=== PATIENT | male | born 1995 | race Native Hawaiian/Other Pacific Islander ===

== ENCOUNTER 2016-06-11 12:17 | Emergency (ER) | payer OTHER ==
[~2016-06-11] VITALS: Ht 165.1 cm; Wt 81.6 kg
[2016-06-11 13:25] VITALS: BP 123/71; TEMP 98.7
== END 2016-06-11 13:27 | disposition home or self-care (01) ==
LOC: ED 12:17
DX: J06.9 Acute upper respiratory infection, unspecified (principal)
CPT/HCPCS: 99282

== ENCOUNTER 2016-10-07 17:25 | Emergency (ER) | payer OTHER ==
[~2016-10-07] VITALS: Ht 165.1 cm; Wt 81.6 kg
[2016-10-07 17:43] VITALS: BP 131/75; TEMP 98
== END 2016-10-07 18:37 | disposition left against medical advice (07) ==
LOC: ED 17:25
DX: R07.89 Other chest pain (principal)
CPT/HCPCS: 99281

== ENCOUNTER 2016-11-12 01:31 | Emergency (ER) | payer OTHER ==
[~2016-11-12] VITALS: Ht 167.6 cm; Wt 81.6 kg
[2016-11-12 01:47] VITALS: TEMP 98.1
[2016-11-12 02:06] LABS: PLATELET COUNT 377 K/uL (142-355)
[2016-11-12 02:29] LABS: POTASSIUM 3.8 mmol/L (3.6-5.2); SODIUM 143 mmol/L (136-145)
[2016-11-12 03:23] VITALS: BP 142/86
== END 2016-11-12 03:54 | disposition short-term general hospital (02) ==
LOC: ED 01:31
DX: S93.04XA Dislocation of right ankle joint, initial encounter (principal); S82.51XA Displaced fracture of medial malleolus of right tibia, initial encounter for closed fracture; S82.831A Other fracture of upper and lower end of right fibula, initial encounter for closed fracture; V86.59XA Driver of other special all-terrain or other off-road motor vehicle injured in nontraffic accident, initial encounter; Y92.410 Unspecified street and highway as the place of occurrence of the external cause
CPT/HCPCS: 36415; 80053; 85027; 96374; 96375; 99285; J2175; J2270; J2405

== ENCOUNTER 2016-11-12 04:03 | Outpatient (CLI) | payer OTHER | END 2016-11-12 05:18 | disposition short-term general hospital (02) | LOC: AMB 04:03 | DX: S93.04XA Dislocation of right ankle joint, initial encounter (principal); S82.51XA Displaced fracture of medial malleolus of right tibia, initial encounter for closed fracture; S82.831A Other fracture of upper and lower end of right fibula, initial encounter for closed fracture; V86.59XA Driver of other special all-terrain or other off-road motor vehicle injured in nontraffic accident, initial encounter; Y92.410 Unspecified street and highway as the place of occurrence of the external cause | CPT/HCPCS: A0425; A0429 ==

== ENCOUNTER 2016-11-12 22:50 | Emergency (ER) | payer OTHER ==
[~2016-11-12] VITALS: Ht 167.6 cm; Wt 81.6 kg
[2016-11-12 22:49] VITALS: TEMP 98.1
[2016-11-13 00:08] VITALS: BP 128/89
== END 2016-11-13 00:08 | disposition home or self-care (01) ==
LOC: ED 22:50
DX: Z04.3 Encounter for examination and observation following other accident (principal)
CPT/HCPCS: 99283

== ENCOUNTER 2016-11-27 08:26 | Emergency (ER) | payer OTHER ==
[~2016-11-27] VITALS: Ht 170.2 cm; Wt 70.8 kg
[2016-11-27 08:45] VITALS: BP 153/92; TEMP 98.6
== END 2016-11-27 09:00 | disposition home or self-care (01) ==
LOC: ED 08:26
DX: M79.604 Pain in right leg (principal); Z98.890 Other specified postprocedural states
CPT/HCPCS: 99281

== ENCOUNTER 2017-10-16 08:08 | Emergency (ER) | payer OTHER ==
[~2017-10-16] VITALS: Ht 167.6 cm; Wt 72.6 kg
[2017-10-16 08:10] VITALS: BP 137/101; TEMP 98
[2017-10-16 09:01] LABS: PLATELET COUNT 326 K/uL (142-355)
[2017-10-16 09:16] LABS: POTASSIUM 3.4 mmol/L (3.6-5.2)
== END 2017-10-16 10:10 | disposition home or self-care (01) ==
LOC: ED 08:08
PROVIDERS: Emergency Medicine
DX: N45.1 Epididymitis (principal)
CPT/HCPCS: 36415; 80053; 81000; 85027; 99283; J0696

== ENCOUNTER 2018-04-28 02:08 | Emergency (ER) | payer OTHER ==
[~2018-04-28] VITALS: Ht 167.6 cm; Wt 76.2 kg
[2018-04-28 03:27] LABS: PLATELET COUNT 345 K/uL (142-355)
[2018-04-28 06:38] VITALS: BP 148/83; TEMP 97.1
== END 2018-04-28 06:41 | disposition home or self-care (01) ==
LOC: ED 02:08
PROVIDERS: Family Medicine
DX: I20.9 Angina pectoris, unspecified (principal); F19.10 Other psychoactive substance abuse, uncomplicated; R00.1 Bradycardia, unspecified
CPT/HCPCS: 36415; 80053; 80307; 81000; 82550; 84484; 85027; 93005; 99283

== ENCOUNTER 2021-01-09 08:52 | Emergency (ER) | payer OTHER ==
[~2021-01-09] VITALS: Ht 167.6 cm; Wt 99.8 kg
[2021-01-09 09:30] VITALS: TEMP 98.7
[2021-01-09 11:10] VITALS: BP 123/78
--- NOTE | 2021-01-11 09:00 | NUR ---
0901- PATIENT CALLED TO ASK ABOUT COVID TEST RESULTS. AFTER VERIFYING DATE OF , COVID RESULTS WERE GIVEN TO PATIENT. PATIENT REQUESTED COPY OF RECORDS SO THE CALL WAS THEN TRANSFERRED TO MEDICAL RECORDS. NO OTHER QUESTIONS OR CONCERNS VOICED AT THIS TIME.
== END 2021-01-09 11:10 | disposition home or self-care (01) ==
LOC: ED 08:52
DX: B34.9 Viral infection, unspecified (principal); Z20.822 Contact with and (suspected) exposure to COVID-19
CPT/HCPCS: 87635; 99283; U0003

== ENCOUNTER 2021-04-20 08:41 | Emergency (ER) | payer OTHER ==
[~2021-04-20] VITALS: Ht 167.6 cm; Wt 104.3 kg
[2021-04-20 08:50] VITALS: BP 134/80; TEMP 97.4
== END 2021-04-20 10:03 | disposition home or self-care (01) ==
LOC: ED 08:41
DX: R23.8 Other skin changes (principal); R06.2 Wheezing; F17.210 Nicotine dependence, cigarettes, uncomplicated
CPT/HCPCS: 94664; 96372; 99283; J0696

== ENCOUNTER 2021-05-09 20:02 | Emergency (ER) | payer OTHER ==
[~2021-05-09] VITALS: Ht 167.6 cm; Wt 104.3 kg
[2021-05-09 23:25] VITALS: BP 131/77; TEMP 98.5
== END 2021-05-09 23:26 | disposition home or self-care (01) ==
LOC: ED 20:02
DX: J40 Bronchitis, not specified as acute or chronic (principal); U07.1 COVID-19; F17.210 Nicotine dependence, cigarettes, uncomplicated
CPT/HCPCS: 99283

== ENCOUNTER 2021-11-26 01:32 | Emergency (ER) | payer OTHER ==
[~2021-11-26] VITALS: Ht 167.6 cm; Wt 104.3 kg
[2021-11-26 01:38] VITALS: TEMP 97.9
[2021-11-26 02:30] VITALS: BP 139/74
== END 2021-11-26 02:30 | disposition home or self-care (01) ==
LOC: ED 01:32
DX: H66.91 Otitis media, unspecified, right ear (principal); F17.210 Nicotine dependence, cigarettes, uncomplicated
CPT/HCPCS: 96372; 99283; J0696; J1885

== ENCOUNTER 2022-03-15 06:58 | Emergency (ER) | payer OTHER ==
[~2022-03-15] VITALS: Ht 167.6 cm; Wt 104.3 kg
[2022-03-15 07:05] VITALS: TEMP 99
[2022-03-15 08:05] VITALS: BP 146/78
== END 2022-03-15 08:09 | disposition home or self-care (01) ==
LOC: ED 06:58
DX: S90.31XA Contusion of right foot, initial encounter (principal); X50.1XXA Overexertion from prolonged static or awkward postures, initial encounter; Y92.89 Other specified places as the place of occurrence of the external cause
CPT/HCPCS: 96372; 99283; J1885

== ENCOUNTER 2022-05-29 18:27 | Emergency (ER) | payer OTHER ==
[~2022-05-29] VITALS: Ht 167.6 cm; Wt 104.3 kg
[2022-05-29 19:00] VITALS: TEMP 98.8
[2022-05-29 20:32] LABS: PLATELET COUNT 214 K/uL (142-355)
[2022-05-29 21:30] VITALS: BP 138/76
== END 2022-05-29 21:30 | disposition home or self-care (01) ==
LOC: ED 18:27
PROVIDERS: Emergency Medicine
DX: J10.1 Influenza due to other identified influenza virus with other respiratory manifestations (principal); J45.909 Unspecified asthma, uncomplicated; Z20.822 Contact with and (suspected) exposure to COVID-19; F17.210 Nicotine dependence, cigarettes, uncomplicated
CPT/HCPCS: 36415; 80048; 85027; 87502; 87635; 87651; 94664; 96372; 99283; J2930; U0001